=== PATIENT | male | born 2000 | race Caucasian/White ===

== ENCOUNTER 2024-02-03 10:20 | Day surgery (SDC) | payer MEDICAID, SELFPAY ==
[2024-02-02 10:36] VITALS: BMI 33.5
[2024-02-02 11:59] LABS: Basophils # (Auto) 0.1 Thou/mm3 (0.0-0.2); Basophils % (Auto) 1 % (0-2.5); Eosinophils # (Auto) 0.8 Thou/mm3 (0.0-0.5); Eosinophils % (Auto) 9 % (0-10); Hematocrit 43.5 % (41.0-53.0); Hemoglobin 14.7 g/dL (13.5-16.0); Immature Granulocytes % (Auto) 0 % (0-0); Immature Granulocytes Auto 0.02 Thou/mm3 (0.00-0.00); Lymphocytes # (Auto) 2.4 Thou/mm3 (1.0-4.8); Lymphocytes % (Auto) 28 % (10-50); Mean Corpuscular HGB Conc 33.8 g/dl (31.0-37.0); Mean Corpuscular Hemoglobin 30.2 pg (25.0-35.0); Mean Corpuscular Volume 89 fL (80-100); Monocytes # (Auto) 0.5 Thou/mm3 (0.0-0.8); Monocytes % (Auto) 6 % (0-12); Neutrophils # (Auto) 4.7 Thou/mm3 (1.8-7.7); Neutrophils % (Auto) 55 % (37-80); Nucleated Red Blood Cell % 0 /100 WBC (0); Platelet Count 261 Thou/mm3 (140-440); RDW Standard Deviation 42.3 fL (35.1-43.9); Red Blood Count 4.87 Miln/mm3 (4.50-5.90); White Blood Count 8.6 Thou/mm3 (3.8-10.6)
[2024-02-02 12:07] LABS: Anion Gap 6 (7-16); BUN/Creatinine Ratio 7 Ratio (12-20); Blood Urea Nitrogen 8 mg/dL (9-23); Calcium 9.7 mg/dL (8.3-10.6); Carbon Dioxide 27.4 mMol/L (20.0-31.0); Chloride 106 mMol/L (98-107); Creatinine (Component) 1.1 mg/dL (0.6-1.3); Estimated Creatinine Clearance 161.6 mL/min (>60); Glucose 96 mg/dL (74-106); Osmolality,Calculated 275 (275-295); Potassium 4.1 mMol/L (3.4-5.1); Sodium 139 mMol/L (136-145); eGFR > 60 See Note
--- NOTE | 2024-02-02 15:01 | ESHP_ITS ---
RE: JESSICA GALINDO : 2000 DATE OF ADMISSION: 02/03/2024 HISTORY OF PRESENT ILLNESS: The patient came to my office for detailed preop history and physical examination. The patient presents to me with a history of pain, swelling, clicking and locking of the left knee joint. It is interfering with routine daily activities and activities of daily living. The patient has stated that his quality of life is affected. PAST MEDICAL HISTORY: No history of diabetes mellitus, high blood pressure, asthma, seizures, or chest pain. PAST SURGICAL HISTORY: Nil. DRUG HISTORY: Pain medication on and off. ALLERGIES: NIL KNOWN. FAMILY HISTORY AND SOCIAL HISTORY: Noncontributory. PHYSICAL EXAMINATION: GENERAL: Normal built person. VITAL SIGNS: Pulse 88 per minute. Blood pressure 138/76. NECK: Soft, supple. No masses felt. Trachea is centrally placed. CARDIOVASCULAR SYSTEM: First and second heart sounds normal. No murmur heard. LUNGS: Bilateral vesicular breath sounds. CHEST: Clear. ABDOMEN: Soft. No masses felt. Bowel sounds present. EXTREMITIES: Left knee examination reveals mild swelling. There is 1+ tenderness. Active range of motion 0 to 120 degrees of flexion. Luis Alberto's test is positive. Drawer test and Jamison tests were negative. The patient walks with a limp. DIAGNOSTIC DATA: MRI scan confirmed a complex meniscal tear with synovitis and increased joint fluid. ASSESSMENT AND PLAN: Since the patient was symptomatic, therefore, left knee arthroscopy was discussed and advised. Risks of anesthesia was explained and that includes, but not limited to reaction to anesthetic agents, cardiac arrest and rarely it might be fatal. Risks with operations include infection and if that happens, the patient may need further surgical procedure. Sometime rare complications include DVT and pulmonary emboli may take place that could be fatal as well. No guarantees given regarding the outcome of the procedure and/or relief of symptoms. Accordingly, surgery is booked for 02/03/2024. Appropriate lab work was done. DT: 12:34:53 TT: 15:00:00 Ref: [id number] - TID: [id number]
[2024-02-03] VITALS (8 sets, daily range): BP systolic 132–150; BP diastolic 73–93; PULSE 60–86; RESP 12–20; TEMP 36.9–37; O2SAT 97–99; BMI 33.0
[2024-02-03] MEDS: RINGERS LACTATED 1000 ML 1,000 ML 20 ML IV (11:03)
--- NOTE | 2024-02-03 14:38 | ESOP_ITS ---
Date of Procedure 02/03/24 Pre Op Diagnosis Torn lateral meniscus 2. Torn medial meniscus 3. Contusion anterior medial tibial plateau 4. Synovitis with medial plica Procedure 1. Partial medial meniscectomy 2. Partial lateral meniscectomy 3. Chondroplasty 4 partial synovectomy including excision plica Findings Refer dictation Procedure Description The patient was given general endotracheal anesthesia. Once satisfactory anesthesia was achieved, tourniquet was placed on left upper thigh. Following that the part was thoroughly prepped and draped. After using Esmarch the duran rniquet pressure was raised to 350 mmHg. A skin incision was made proximal to lateral tibial plateau and arthroscope was introduced in the usual fashion. Another a skin incision was made in suprapat ellar pouch area and outlet was established. The findings were noted as below. In suprapatellar pouch area significant synovial tissue inflammation was present. Medial plica was present as well. The undersurface of patella showed grade normal chondromalacia. The anterior femoral condyle showed grade normal chondromalacia. Soft tissue impingement was present. The patellar tracking was checked and found to be good. Medial shelf was present The medial compartment showed grade bony contusion on the anterior aspect along with grade II/III chondromalacia on the medial tibial plateau. The medial meniscus showed degeneration and tear of the anterior horn. Another skin incision was made proximal to medial tibial plateau and a probe was introduced and findings were confirmed. The anterior cruciate ligament was intact. The anterior drawer test was performed and found to be good. With the probe the integrity was tested and found to be intact. The lateral compartment showed intact lateral femoral condyle and tibial plateau. Lateral meniscus showed degeneration of the body and anterior horn. A shaver was introduced and shaving of the anterior horn of medial meniscus was performed. Soft tissue impingement was shaved off. Chondroplasty of the medial medial tibial plateau was performed. The shaving of the body and anterior horn of lateral meniscus was done. The soft tissue impingement was shaved off. A partial synovectomy including excision of plica was performed. Copious amount of irrigation was used to irrigate the knee joint. All the debris were removed. 3-0 Prolene was used to close the wound. About 20 mL of quarter percent Marcaine along with 10 mg of Duramorph was injected. Patient tolerated procedure well. Estimated blood loss was about 5 mL. Prognosis in this case is fair to good. Patient was taken to the recovery room in good condition. Anesthesia GETA Pathology / specimen None Estimated Blood Loss 1 Surgeon Lino Jang MD Surgical Staff Operation Date: 02/03/24 13:45 Case Staff Anesthesiologist: Fredrick Lee
--- NOTE | 2024-02-03 14:45 | SUR.PHASEI ---
[id number] Patient arrived to recovery resting comfortably in [facility], on oxygen 4L via nasal cannula, drowsy and able to arouse with verbal prompting, breathing unlabored, vital signs stable, denies pain, dressing intact to left knee; sutures, adaptic soaked in betadine, fluffs, abd, bias roll, silk tape, stockinette, no bleeding noted, bilateral dorsalis pedis pulses present when palpated, lung sounds clear upon auscultation, report received from Gucci OCONNOR and Dr. Lee
--- NOTE | 2024-02-03 15:52 | SUR.PHASEII ---
1552 Patient meets discharge criteria from recovery, awake and alert, breathing unlabored, vital signs stable, denies pain, dressing intact; no bleeding, patient ate two jellos and drinking water; denies nausea, patient assisted with dressing into his clothing by his mother, discharge instructions given to patient and patients mother, mother signed discharge instructions. Patient given all his belongings prior to discharge, transporter via wheelchair and left in private vehicle.
== END 2024-02-03 15:52 | disposition home or self-care (01) ==
PROVIDERS: PCP Nurse Practitioner Family; Referring Provider Orthopaedic Surgery; Visit Provider Orthopaedic Surgery
PROC: (CPT 29870; principal; 2024-02-03 13:30)
DX: S83.242A Other tear of medial meniscus, current injury, left knee, initial encounter (principal); S83.282A Other tear of lateral meniscus, current injury, left knee, initial encounter; M65.90 Unspecified synovitis and tenosynovitis, unspecified site
CPT/HCPCS: 29875; 29880; 36415; 80048; 85025; A4217; A4649; J0131; J1100; J2250; J2274; J2704; J2765; J3010; J3490; J7120; J0665; J1596; J2270

== ENCOUNTER 2024-04-17 14:04 | Outpatient (RCR) | payer MEDICAID, SELFPAY ==
--- NOTE | 2024-04-17 14:15 | PTNOTE_ITS ---
PT OP Initial Eval Patient Information Outpatient Physical Therapy Treatment Date: 04/17/24 Visit Reasons: left knee surgery Medical Diagnosis: Z98.890 M17.12 Treatment Dx #1: L knee pain Start of Care: 04/17/24 Date of Onset: 02/03/24 DOS Smoking Status Smoking Status: Current every day smoker Cessation Counseling Provided: JESSICA was advised that quitting smoking is the single most important factor to protect the health of themselves and their family. Discussed the benefits of quitting smoking with patient. Encouraged patient to quit smoking and provided Cessation assistance materials and resources. Tobacco Use: Cigarette Years smoked: 10 Are you interested in quitting?: No Would you like additional Smoking Cessation Counseling?: No Initial Assessment Subjective: Pt is 24 yr old male s/p L knee partial medial meniscectomy, Partial lateral meniscectomy, Chondroplasty, partial synovectomy including excision plica. Increased pain with twisting the knee, squats, stairs, and prolonged walking >20 mins. PMH: allergies Pt goal: to get back to work Objective: L knee AROM: ? Flexion: 120 deg ? Extension: full ? SLR: 45 deg with slight extensor lag ? Strength: L quads 4-/5, hamstrings 4-/5 ? Mildly antalgic gait pattern with decreased stance time on L Assessment: Pt presentation consistent with post op L knee A/S with decreased ROM, ? strength and WB tolerance. Pt ambulates with decreased WB on L. Pt has ? pain at first resistance into knee flexion that limits end-range ? assessment and PROM. Pt can SLR slowly with difficulty. Pt has ? good rehab potential with attainable functional improvement. Short Term and Blocker And Cutter Contact Lens Goals 1. Independent with HEP ? 2. Improved quad and hamstring strength to 4+/5 ? 3. Improved ambulatory tolerance to 45 mins with symmetrical ? gait pattern. 4. Squat x10 without L knee pain Treatment Plan 1. Manual therapy ? 2. Therex ? 3. Modalities as indicated, tens, MHP, ice Frequency and Duration: 2x a week for 12 sessions plus evaluation Certification Dates: 04/17/24 to 07/15/24 Procedure Charges OP PT Eval Mod Complex 30 minutes: Yes
== END 2024-04-20 23:59 | disposition home or self-care (01) ==
LOC: CPTX 14:04
PROVIDERS: PCP Orthopaedic Surgery; Referring Provider Orthopaedic Surgery; Visit Provider Orthopaedic Surgery
DX: M25.562 Pain in left knee (principal); Z98.890 Other specified postprocedural states; Z71.6 Tobacco abuse counseling; F17.210 Nicotine dependence, cigarettes, uncomplicated; M17.12 Unilateral primary osteoarthritis, left knee
CPT/HCPCS: 97162

== ENCOUNTER 2024-05-10 15:30 | Outpatient (RCR) | payer MEDICAID, SELFPAY ==
--- NOTE | 2024-04-24 15:49 | PT.ODAYNRPT ---
PT Outpatient Daily Note OP Daily Note Outpatient Physical Therapy Treatment Date: 04/24/24 Visit Reasons: LEFT KNEE SURGERY Subjective: Not much L knee pain today Objective: See f/S for therex Assessment: Difficulty with SLR and step ups due to L knee fatigue Plan: Continue per POC Length of Time (minutes) of Treatment: 30 Minutes Procedure Charges Therapeutic Exercise 30 minutes: Yes
--- NOTE | 2024-04-26 16:12 | PT.ODAYNRPT ---
PT Outpatient Daily Note OP Daily Note Outpatient Physical Therapy Treatment Date: 04/26/24 Visit Reasons: LEFT KNEE SURGERY Subjective: Not much L knee pain today Objective: See f/S for therex Assessment: Difficulty with SLR and step ups due to L knee fatigue Plan: Continue per POC Length of Time (minutes) of Treatment: 30 Minutes Procedure Charges Therapeutic Exercise 30 minutes: Yes
--- NOTE | 2024-05-03 16:04 | PT.ODAYNRPT ---
PT Outpatient Daily Note OP Daily Note Outpatient Physical Therapy Treatment Date: 05/03/24 Visit Reasons: LEFT KNEE SURGERY Subjective: Not much L knee pain today Objective: See f/S for therex Assessment: Less difficulty with SLR and step ups Plan: Continue per POC Length of Time (minutes) of Treatment: 30 Minutes Procedure Charges Therapeutic Exercise 30 minutes: Yes
--- NOTE | 2024-05-07 15:49 | PT.ODAYNRPT ---
PT Outpatient Daily Note OP Daily Note Outpatient Physical Therapy Treatment Date: 05/07/24 Visit Reasons: LEFT KNEE SURGERY Subjective: Not much L knee pain today Objective: See f/S for therex Assessment: Less difficulty with SLR x20 and step ups on 6 step Plan: Continue per POC Length of Time (minutes) of Treatment: 30 Minutes Procedure Charges Therapeutic Exercise 30 minutes: Yes
--- NOTE | 2024-05-10 15:55 | PT.ODAYNRPT ---
PT Outpatient Daily Note OP Daily Note Outpatient Physical Therapy Treatment Date: 05/10/24 Visit Reasons: LEFT KNEE SURGERY Subjective: Pt reports L knee is hurting some today, was sitting on the floor yesterday for ~30 minutes with daughter . Objective: Please see flow sheet for ther ex list. Assessment: Pt demonstrates excessive anterior tibial translation with lunges, corrects with verbal cues and demonstrations. Plan: Continue with poC. Length of Time (minutes) of Treatment: 30 Minutes Procedure Charges Therapeutic Exercise 30 minutes: Yes
== END 2024-05-21 23:59 | disposition home or self-care (01) ==
LOC: CPTX 15:30
PROVIDERS: PCP Orthopaedic Surgery; Referring Provider Orthopaedic Surgery; Visit Provider Orthopaedic Surgery
DX: M25.562 Pain in left knee (principal); Z98.890 Other specified postprocedural states; M17.12 Unilateral primary osteoarthritis, left knee
CPT/HCPCS: 97110

== ENCOUNTER 2024-06-14 14:30 | Outpatient (RCR) | payer MEDICAID, SELFPAY ==
--- NOTE | 2024-05-30 15:53 | PT.ODAYNRPT ---
PT Outpatient Daily Note OP Daily Note Outpatient Physical Therapy Treatment Date: 05/30/24 Visit Reasons: LEFT KNEE SURGERY Subjective: Pt reports knee is doing ok, has not been to therapy for ~3 weeks because him and his family have been recovering from RSV. Objective: Please see flow sheet for ther ex lsit. Assessment: Pt tolerated interventions well, no complaints., Plan: Progress interventions. Length of Time (minutes) of Treatment: 30 Minutes Procedure Charges Therapeutic Exercise 30 minutes: Yes
--- NOTE | 2024-06-01 15:21 | PT.ODAYNRPT ---
PT Outpatient Daily Note OP Daily Note Outpatient Physical Therapy Treatment Date: 06/01/24 Visit Reasons: LEFT KNEE SURGERY Subjective: Pt reports knee is doing better Objective: Please see flow sheet for ther ex list. Assessment: Progressing strengthening interventions, pt tolerated well. Plan: Please see flow sheet for ther ex list. Length of Time (minutes) of Treatment: 30 Minutes Procedure Charges Therapeutic Exercise 30 minutes: Yes
--- NOTE | 2024-06-14 18:07 | PT.ODS1RPT ---
PT OP Progress/Discharge Note Date of Service: 06/14/24 Progress Note/DC Note Progress Note/Discharge Note: DC Note Patient Information Visit Reasons: LEFT KNEE SURGERY Service Continue Service or Discharge: Discharge Discharge Date: 06/14/24 Status Subjective: Pt reports good improvement with less pain in L knee since starting therapy and he is ready to D/C. He can walk and squat without pain. Objective: L knee AROM: Flexion: 120 deg Extension: full Strength: Quads: 4+/5 HS: 4+/5 Assessment: Pt has attended 8 Rx sessions with good progress to meet therapy goals. He can squat x10 without L knee pain and can ambulate 45 mins to meet those goals. He has improved quad and HS strength to meet goal of 4+/5 and he is independent with HEP. He should be able to RTW without restrictions. Plan: D/C with HEP Procedure Charges OP PT Eval Mod Complex 30 minutes: Yes
== END 2024-06-20 23:59 | disposition home or self-care (01) ==
LOC: CPTX 14:30
PROVIDERS: PCP Orthopaedic Surgery; Referring Provider Orthopaedic Surgery; Visit Provider Orthopaedic Surgery
DX: M25.562 Pain in left knee (principal); M17.12 Unilateral primary osteoarthritis, left knee; Z98.890 Other specified postprocedural states
CPT/HCPCS: 97110; 97162